=== PATIENT | male | born 1990 | race Caucasian/White ===

== ENCOUNTER 2020-04-06 15:24 | Emergency (ER) | payer SELFPAY ==
[~2020-04-06] VITALS: Ht 170.2 cm; Wt 79.4 kg
[2020-04-06 15:28] VITALS: BP 140/103
--- NOTE | 2020-04-06 15:45 | NUR ---
C/O DECREASED HEARING & INTERMITENT PAIN TO LEFT EAR X 4 WEEKS. DENIES TRAUMA.PT AOX4 , AFIBRILE , AMBULATORY WITH STEAD GAIT , PINK PALPEBRAL CONJUNCTIVA ANICTERIC SCLERA , WHITE BUMP IN MIDDLE EAR AND WHITE TM , SCE . MED HX: DENIES
--- NOTE | 2020-04-06 16:11 | NUR ---
DR ASHFORD AT BEDSIDE EVALUATING PT.
--- NOTE | 2020-04-06 16:19 | NUR ---
EMT ERIC GUTIERREZ FLASHING OF LEFT EAR.
--- NOTE | 2020-04-06 16:44 | NUR ---
IRRIGATED LEFT YEAR WITH WATER AND HYDROGEN PEROXIDE WITHOUT ANY ISSUES.
[2020-04-06 17:01] VITALS: BP 140/90
--- NOTE | 2020-04-06 17:02 | NUR ---
Patient discharged with v/s stable. Written and verbal after care instructions given and explained. Patient verbalized understanding. Ambulatory with steady gait. All questions addressed prior to discharge. Advised to follow up with PMD.
== END 2020-04-06 17:02 | disposition home or self-care (01) ==
LOC: MED 15:24
DX: H61.22 Impacted cerumen, left ear (principal)
CPT/HCPCS: 99282